=== PATIENT | male | born 1980 | race African-American/Black ===

== ENCOUNTER 2022-09-17 12:49 | Emergency (ER) | payer BC ==
[~2022-09-17] VITALS: Ht 175.3 cm; Wt 77.0 kg
[2022-09-17 12:50] VITALS: BP 100/43
[2022-09-17] MEDS ORDERED: ONDANSETRON HCL 4MG/2ML INJ IV STA (13:07)
[2022-09-17] MEDS ORDERED: SODIUM CHLORIDE 0.9% 1,000 ML IV ONE (13:15)
[2022-09-17] MEDS ORDERED: IBUP-2028 MT (15:08)
[2022-09-17 15:09] LABS: BASOPHILS % 0.4 % (0.0-2.0); EOSINOPHILS % 0.9 % (0.0-5.0); HEMOGLOBIN. 13.7 g/dL (14.0-18.0); LYMPHOCYTES % 23.4 % (20.0-50.0); MEAN CORPUSCULAR HEMOGLOBIN 33.1 pg (28.0-32.0); MEAN CORPUSCULAR VOLUME 96.4 fL (80.0-94.0); MEAN PLATELET VOLUME 9.2 fl (7.4-10.4); MONOCYTES % 7.4 % (2.0-8.0); NEUTROPHILS % 67.9 % (40.0-76.0); PLATELET 184 x1000/uL (130-400); RED BLOOD CELL COUNT 4.15 mill/uL (4.7-6.1)
[2022-09-17 15:14] LABS: CHLORIDE 105 mEq/L (98-107)
== END 2022-09-17 16:32 | disposition home or self-care (01) ==
LOC: ER 12:49
DX: U07.1 COVID-19 (principal); R42 Dizziness and giddiness; R11.0 Nausea; D64.9 Anemia, unspecified
CPT/HCPCS: 36415; 71045; 80053; 85025; 87426; 93005; 96361; 96374; 99285; C9803; J2405; J7030